=== PATIENT | male | born 1980 | race African-American/Black ===

== ENCOUNTER 2020-10-14 14:01 | Emergency (ER) | payer SELFPAY ==
[~2020-10-14] VITALS: Ht 177.8 cm; Wt 83.4 kg
[2020-10-14 14:33] LABS: BASOPHILS % (AUTO) 0.2 % (0.0-2.0); EOSINOPHILS % (AUTO) 0 % (1.0-6.0); HEMATOCRIT 46.4 % (41-53); HEMOGLOBIN 14.6 g/dL (13.5-17.5); MEAN CORPUSCULAR HEMOGLOBIN 27.4 pg (26.0-34.0); MEAN CORPUSCULAR HGB CONC 31.6 G/dL (31.0-37.0); MEAN CORPUSCULAR VOLUME 87 fL (80-100); MONOCYTES # (AUTO) 1.1 K/uL (0.1-1.0); MONOCYTES % (AUTO) 7.4 % (2.0-9.0); NEUTROPHILS # (AUTO) 12.5 K/uL (1.8-7.7); PLATELET COUNT (AUTO) 204 K/uL (150-450); RED BLOOD CELL COUNT(AUTO) 5.34 MIL/uL (4.50-5.90); RED CELL DISTRIBUTION WIDTH 13.7 % (11.5-14.5)
[2020-10-14 14:35] LABS: ANION GAP 21 mmol/L (8-16); CALCIUM, TOTAL 9.8 mg/dL (8.8-10.5); CARBON DIOXIDE 25 mmol/L (22-29); CHLORIDE 95 mmol/L (98-107); CREATININE 2.01 mg/dL (0.60-1.30); GLOMERULAR FILTR. RATE CALC 37 mL/min (>60); GLUCOSE,RANDOM 88 mg/dL (70-110); SODIUM SERUM 141 mmol/L (136-145); UREA NITROGEN, BLOOD 38 mg/dL (7-18)
[2020-10-14 14:39] LABS: NEUTROPHILS % (AUTO) 85.4 % (40.0-70.0)
[2020-10-14 14:41] LABS: ALANINE AMINOTRANSFERASE 87 U/L (12-78); ALBUMIN 4.6 g/dL (3.4-5.0); ALKALINE PHOSPHATASE 86 U/L (46-116); ASPARTATE AMINOTRANSFERASE 120 U/L (15-37); BILIRUBIN,TOTAL 2.6 mg/dL (0.1-1.0); TOTAL PROTEIN, SERUM 9.1 g/dL (6.4-8.2)
[2020-10-14 14:44] LABS: APPEARANCE,URINE SL CLOUDY (CLEAR); GLUCOSE, URINE (UA) NEGATIVE (NEGATIVE); KETONES,URINE 15 mg/dL (NEGATIVE); LEUKOCYTE ESTERASE ,URINE NEGATIVE (NEGATIVE); NITRATE,URINE NEGATIVE (NEGATIVE); OCCULT BLOOD,URINE MODERATE (NEGATIVE); PROTEIN,URINE POS 1+ (NEGATIVE)
[2020-10-14 14:46] LABS: BILIRUBIN,URINE PRELIM. POSITIVE (NEGATIVE)
[2020-10-14 14:47] LABS: BACTERIA,URINE Moderate /HPF (None Seen); WBC,URINE None Seen /HPF (0-5)
[2020-10-14 14:48] LABS: HYALINE CASTS, URINE 0-2 /LPF (None Seen)
[2020-10-14 15:09] LABS: AMPHET/METH SCREEN,URINE POSITIVE (NEGATIVE); BARBITURATE SCREEN, URINE NEGATIVE (NEGATIVE); BENZODIAZEPINES SCREEN,URINE NEGATIVE (NEGATIVE); CANNABINOID SCREEN,URINE POSITIVE (NEGATIVE); COCAINE SCREEN,URINE POSITIVE (NEGATIVE); METHADONE SCREEN, URINE NEGATIVE (NEGATIVE); OPIATE SCREEN,URINE NEGATIVE (NEGATIVE); PHENCYCLIDINE SCREEN,URINE NEGATIVE (NEGATIVE)
[2020-10-14] MEDS ORDERED: SODIUM CHLORIDE 0.9% 1,000 ML IV ONE ×2 (15:15→16:45)
[2020-10-14 15:32] LABS: PLATELET MORPHOLOGY COMMENT LARGE PLTS PRESENT
[2020-10-14] MEDS ORDERED: ACETAMINOPHEN 325 MG TABLET PO ONE (17:45)
[2020-10-14] MEDS ORDERED: CefTRIAXone 1 GM/DEXTROSE 50 ML IV ONE (17:45)
[2020-10-14 18:38] VITALS: BP 115/76
== END 2020-10-14 19:13 | disposition home or self-care (01) ==
LOC: EMS 14:01
DX: S81.011A Laceration without foreign body, right knee, initial encounter (principal); M25.562 Pain in left knee; F14.10 Cocaine abuse, uncomplicated; F15.10 Other stimulant abuse, uncomplicated; V00.131A Fall from skateboard, initial encounter; Y93.51 Activity, roller skating (inline) and skateboarding; Y92.89 Other specified places as the place of occurrence of the external cause; Y99.8 Other external cause status
CPT/HCPCS: 36415; 73562 ×2; 80053; 80307; 81001; 82140; 85025; 87086; 96361; 96365; 99285; G0480; J0696; 29530; 51701

== ENCOUNTER 2020-10-14 21:59 | Emergency (ER) | payer MEDICAID ==
[~2020-10-14] VITALS: Ht 170.2 cm; Wt 86.4 kg
[2020-10-14 23:04] VITALS: BP 136/77
[2020-10-15] MEDS ORDERED: ACETAMINOPHEN 325 MG TABLET PO ONE (02:15)
[2020-10-15] MEDS ORDERED: IBUPROFEN 800 MG TABLET PO ONE (02:15)
== END 2020-10-15 04:10 | disposition home or self-care (01) ==
LOC: EMS 22:04
DX: L03.115 Cellulitis of right lower limb (principal); M25.561 Pain in right knee; Z76.0 Encounter for issue of repeat prescription
CPT/HCPCS: 99283